=== PATIENT | female | born 1985 | race Hispanic/Latino ===

== ENCOUNTER 2021-01-26 05:54 | Day surgery (SDC) | payer BC ==
[~2021-01-26] VITALS: Ht 170.2 cm; Wt 74.8 kg
[2021-01-26] VITALS (8 sets, daily range): BP systolic 109–158; BP diastolic 64–98
[~2021-01-26 05:54] MED LIST: EMPA25TA PO; LISI-809 PO; METF-446 PO; [UNRECOGNIZED DRUG - OTHER] SQ
[2021-01-26] MEDS ORDERED: SODIUM CHLORIDE 0.9% 1000ML 1,000 ML IV ONE (06:17)
[2021-01-26] MEDS ORDERED: PROPOFOL 10 MG/ML 20ML VIAL IV ONE ×2 (07:14→07:29)
[2021-01-26] MEDS ORDERED: LIDOCAINE HCL 1% 20 ML VIAL ONE (07:14)
== END 2021-01-26 08:10 | disposition home or self-care (01) ==
LOC: DAH 05:54
PROVIDERS: ATTEND Internal Medicine
DX: R93.5 Abnormal findings on diagnostic imaging of other abdominal regions, including retroperitoneum (principal); Z20.822 Contact with and (suspected) exposure to COVID-19; K83.8 Other specified diseases of biliary tract; K86.9 Disease of pancreas, unspecified; I86.4 Gastric varices; K29.50 Unspecified chronic gastritis without bleeding; R16.1 Splenomegaly, not elsewhere classified; I10 Essential (primary) hypertension; E11.9 Type 2 diabetes mellitus without complications; Z90.49 Acquired absence of other specified parts of digestive tract; Z98.890 Other specified postprocedural states; Z79.84 Long term (current) use of oral hypoglycemic drugs
CPT/HCPCS: 43259; 81025; 82948 ×2; 87635; A4215 ×2; A4221; A4222; A4223; A4606; A4620; A4657; A4663; C9803; J2704 ×2; J7030

== ENCOUNTER → 2025-06-25 | Outpatient (CLI) | payer BC ==
[~2025-06-25] MED LIST changes: +GADOTERATE MEGLUMINE 10 MMOL/20 ML VIAL IV ONE; -LISI-809 PO; +LISI5TAB21 PO
--- NOTE | 2025-06-25 23:18 | HMCIMG ---
EXAM: MAGNETIC RESONANCE IMAGING OF THE ABDOMEN WITH AND WITHOUT INTRAVENOUS CONTRAST Technique: Multiplanar magnetic resonance imaging of the abdomen was performed before and after intravenous contrast, including T1-weighted in-phase and [id number], T2-weighted, diffusion-weighted imaging with apparent diffusion coefficient maps, and dynamic post-contrast T1-weighted images in arterial, portal venous, and delayed phases. Contrast: Clariscan 18 mL administered intravenously. Contrast Impression: Contrast timing and enhancement are adequate for diagnostic assessment without limiting artifacts. Clinical Information: Abnormal prior imaging of the liver and biliary tract; post-cholecystectomy. Findings: Liver: Measures 13.7 cm. In segments V and VII of the right hepatic lobe, there is an ill-defined, non-enhancing region measuring 10.2 ??? 6.8 ??? 5.6 cm that is hyperintense on T2-weighted images and hypointense on T1-weighted images; no internal nodular or septal enhancement is identified on multiphasic post-contrast series. No additional focal hepatic lesions are detected. Gallbladder and biliary tree: Post-cholecystectomy. Common bile duct caliber up to 1.1 cm proximally with smooth tapering (approximately 8 mm in the mid-segment and normal distally). No intrahepatic biliary ductal dilatation is evident. Pancreas: Normal in size and signal; pancreatic duct is not dilated. Spleen: Normal size and signal. Adrenal glands: Normal morphology without nodules. Kidneys and ureters: Normal size and enhancement; no hydronephrosis or focal renal mass. Bowel/mesentery: Visualized bowel loops without focal wall thickening or inflammatory change. Vasculature: Hepatic and portal veins are patent. Osseous structures and soft tissues:The Visualized spine and soft tissues are unremarkable. Comparison statement: No prior examinations are available for comparison. Impression: 1. Right hepatic lobe (segments V and VII) non-enhancing T2-hyperintense/T1-hypointense region measuring 10.2 ??? 6.8 ??? 5.6 cm, most consistent with a fluid collection (e.g., biloma in the post-cholecystectomy setting versus a proteinaceous/simple cyst); lack of enhancement argues against a solid neoplasm. Correlate with symptoms and liver function tests; if bile leak is a clinical concern, hepatobiliary scintigraphy may help confirm active leakage, and targeted ultrasound (with consideration of percutaneous aspiration/drainage if symptomatic or infected) can be considered. 2. Post-cholecystectomy common bile duct caliber up to 1.1 cm proximally with smooth distal tapering???configuration that can be within expected limits after cholecystectomy in the absence of obstructive symptoms or abnormal laboratory values; correlate clinically. 3. Pancreas, spleen, adrenal glands, kidneys, and visualized bowel are unremarkable on this examination. /[place]
== END | disposition home or self-care (01) ==
LOC: RAH 07:54
PROVIDERS: ATTEND Internal Medicine
DX: R93.2 Abnormal findings on diagnostic imaging of liver and biliary tract (principal); Z90.49 Acquired absence of other specified parts of digestive tract
CPT/HCPCS: 74183; A9575

== ENCOUNTER → 2025-07-23 | Outpatient (CLI) | payer BC ==
[~2025-07-23] MED LIST changes: -GADOTERATE MEGLUMINE 10 MMOL/20 ML VIAL IV ONE
--- NOTE | 2025-07-24 05:27 | HMCIMG ---
EXAM: HIDA scan INDICATION: Severe RUQ Pain to rule out biliary leak. REFERENCE EXAMINATION: None TECHNIQUE: Sequential images of the abdomen were obtained in the anterior projection after IV administration of 7.5 mCi of Tc99m Mebrofenin. FINDINGS: Tracer activity throughout the liver is homogeneous without focal defects. There is prompt excretion of the pharmaceutical into the bile ducts and into the small bowel, without evidence of obstruction. Pooling of tracer noted in the jimmy hepatis along the left lobe of the liver. Gall bladder is not visualised - consistent with post-cholecystectomy status. IMPRESSION: Scintigraphic findings are compatible with biliary leak in the jimmy hepatis along the left lobe of the liver. /[place]
== END | disposition home or self-care (01) ==
LOC: RAH 07:17
PROVIDERS: ATTEND Internal Medicine
DX: R93.2 Abnormal findings on diagnostic imaging of liver and biliary tract (principal); Z90.49 Acquired absence of other specified parts of digestive tract
CPT/HCPCS: 78226; A9537